=== PATIENT | female | born 1980 | race Caucasian/White ===

== ENCOUNTER → 2018-01-21 | Outpatient (CLI) | payer OTHER | LOC: HPND 09:32 | DX: O09.522 Supervision of elderly multigravida, second trimester (principal) | CPT/HCPCS: 76811 ==

== ENCOUNTER 2018-05-17 17:02 | Inpatient (IN) ==
[~2018-05-17 17:02] MED LIST: Diphtheria/Tetanus/Pertussis Vaccine Inj 0.5 ML Syringe IM ONE; Measles/Mumps/Rubella Vaccine Inj 0.5 ML Vial SQ ONE
--- NOTE | 2018-05-17 17:19 | ED ---
History of Present Illness Primary Care Physician: NOT REQUIRED History of Present Illness: cc: contractions 38-year-old , IUP at 37.5 care complicated by A1 diabetes diagnosed 2 weeks ago, opioid abuse The patient was previously seen today with symptoms of a UTI and possible leaking of fluid. She was also evaluated for labor and was noted not to be found in active labor. She presents complaining of the onset of contractions that were significantly more intense about 1-1/2 hours before presenting. She reports that these contractions have continued to increase in intensity and frequency. She denies any alleviating factors are attempted treatments. She denies any leaking of fluid or vaginal bleeding. She reports good movement. She reports that her sugars have been somewhat all over the place. She reports that today after lunch it was 170 however she has other days where they are well controlled. She has been referred to [facility] but has not yet seen them, she reports she has an appointment with them on Friday. 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 This includes certification that hospital inpatient services are reasonable and necessary and in the case of services not specified as inpatient-only under 42 CFR 419.22(n), that they are appropriately provided as inpatient services in accordance to with the 2-midnight benchmark under 43 CFR 412.3(e) Review of Systems All other systems reviewed negative except as stated in HPI PMFSH - History History Provided By: Patient (Patient was drug free for years and then just recently started using oral opioid meds oxycodone and similar) - Tobacco History Second Hand Smoke Exposure: No Smoking Status: Never smoker - Alcohol History How Often Do You Have a Drink Containing Alcohol: Never - Substance Use History Substance History: Active Abuse (denies today), Past History - Travel History History of Recent Travel: No Medications and Allergies Allergies Allergy/AdvReac Type Severity Reaction Status Date / Time No Known Allergies Allergy Verified 04/30/18 07:42 Exam Narrative: GENERAL: Well-nourished, well-developed patient. SKIN: Warm and dry. HEAD: Normocephalic and atraumatic. EYES: No scleral icterus. No injection or drainage. ENT: No nasal drainage noted. Mucous membranes pink. Airway patent. NECK: Supple, trachea midline. No JVD. CARDIOVASCULAR: Regular rate and rhythm without murmurs, gallops, or rubs. RESPIRATORY: Breath sounds equal bilaterally. No accessory muscle use. BREASTS: Deferred ABDOMEN/GI: Abdomen soft, non-tender, bowel sounds present, no rebound, no guarding Gravid GENITOURINARY: External Genitalia: intact and normal in appearance. Normal BUS. No cervical or vaginal masses noted. Grossly normal rugate. Physiologic discharge with some bloody show noted. SVE 6/C/-1, cephalic. FHT's: heart tones are in the 140s with moderate long-term variability, good accelerations, no decelerations noted. This a category 1 heart rate tracing and a reactive NST EXTREMITIES: No cyanosis or edema. BACK: Nontender without obvious deformity. No CVA tenderness. NEUROLOGICAL: Awake and alert. Motor and sensory grossly within normal limits. Grossly normal muscle strength in all muscle groups. Normal speech. Psychiatric: Grossly normal memory and affect Results - Labs CBC & Chem 7: 05/17/18 17:25 Assessment and Plan - Plan Assessment/plan: 1. IUP at 37.5 2. Active labor: We will admit for active labor at term. Discussed risks of , risks and indications of delivery 3. A1 diabetes: Patient reports suboptimal control, will check hemoglobin A1c. Discussed risk of shoulder dystocia, and potential complications including but not limited to permanent and irreversible / neurological or brain damage, maternal injury. The patient does not meet criteria to recommend a delivery. 4. well-being: Reassuring testing with reactive NST and category 1 heart rate tracing, continue monitoring 5. History of opioid use: Patient has history of substance abuse in the past, but was clean for years. Patient recently started retaking her 's narcotic pain medication. UDS negative earlier today. 6. GBS negative Discharge Plan - Physicians Team ED Provider: Savita Chan Primary Care Provider: NOT REQUIRED, - Discharge Instructions Print Language: Yoruba
[2018-05-17] MEDS ORDERED: Naloxone Inj 0.4 MG/ML Vial IV.PUSH PRN (17:24)
[2018-05-17] MEDS ORDERED: Sodium Chlor 0.9% Inj 500 ML IV.SIG PRN (17:24)
[2018-05-17] MEDS ORDERED: fentaNYL Citrate Inj 100 MCG/2 ML Ampul IV.PUSH PRN ×2 (17:24)
[2018-05-17] MEDS ORDERED: Oxytocin 30 Units/500ml Premix 30 UNITS/500 ML BAG IV.SIG ONE (17:24)
[2018-05-17] MEDS ORDERED: Sod Chloride 0.9% Inj 1,000 ML IV.CONT PRN (17:24)
[2018-05-17] MEDS ORDERED: Citric Acid/Sodium Citrate Liq 30 ML UDC PO SCH (17:30)
[2018-05-17] MEDS ORDERED: fentaNYL 2MCG-Bupiv 0.125% Epi 150 ML EPIDURAL ONE (17:32)
[2018-05-17 17:57] LABS: Baso % (Auto) 0.1 % (0.0-2.0); Eos % (Auto) 0.1 % (0.0-4.0); Hematocrit 36.1 % (35.0-46.0); Lymph % (Auto) 6.1 % (9.0-44.0); Mean Corpuscular HGB Conc 33.2 % (32.0-36.0); Mean Corpuscular Hemoglobin 29.3 pg (27.0-34.0); Mean Corpuscular Volume 88.3 fL (80.0-100.0); Mean Platelet Volume 8.7 fL (7.0-11.0); Mono # (Auto) 1.8 th/mm3 (0.0-0.9); Mono % (Auto) 10.9 % (0.0-8.0); Neut # (Auto) 13.6 th/mm3 (1.8-7.7); Neut % (Auto) 82.8 % (16.0-70.0); Platelet Count 383 th/mm3 (150-450); Red Blood Count 4.09 mil/mm3 (4.00-5.30); Red Cell Distribution Width 14.1 % (11.6-17.2); White Blood Count 16.4 th/mm3 (4.0-11.0)
[2018-05-17] MEDS ORDERED: Lidocaine 2%/Epinephrine 1:100,000 Inj 20 ML Vial ONE (18:42)
[2018-05-17] MEDS ORDERED: Bupivacaine PF 0.25% Inj 10 ML Vial ONE (18:44)
[2018-05-17] MEDS ORDERED: fentaNYL 2MCG-Bupiv 0.125% Epi 150 ML EPIDURAL PRN (19:33)
[2018-05-17] MEDS ORDERED: fentaNYL Citrate Inj 100 MCG/2 ML Ampul EPIDURAL ONE (19:33)
--- NOTE | 2018-05-17 19:36 | P.HPOB ---
History of Present Illness Primary Care Physician: NOT REQUIRED History of Present Illness: History of Present Illness Primary Care Physician: NOT REQUIRED History of Present Illness: cc: contractions 38-year-old , IUP at 37.5 care complicated by A1 diabetes diagnosed 2 weeks ago, opioid abuse The patient was previously seen today with symptoms of a UTI and possible leaking of fluid. She was also evaluated for labor and was noted not to be found in active labor. She presents complaining of the onset of contractions that were significantly more intense about 1-1/2 hours before presenting. She reports that these contractions have continued to increase in intensity and frequency. She denies any alleviating factors are attempted treatments. She denies any leaking of fluid or vaginal bleeding. She reports good movement. She reports that her sugars have been somewhat all over the place. She reports that today after lunch it was 170 however she has other days where they are well controlled. She has been referred to [facility] but has not yet seen them, she reports she has an appointment with them on Friday. 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 This includes certification that hospital inpatient services are reasonable and necessary and in the case of services not specified as inpatient-only under 42 CFR 419.22(n), that they are appropriately provided as inpatient services in accordance to with the 2-midnight benchmark under 43 CFR 412.3(e) Review of Systems All other systems reviewed negative except as stated in HPI PMFSH - History History Provided By: Patient (Patient was drug free for years and then just recently started using oral opioid meds oxycodone and similar) - Tobacco History Second Hand Smoke Exposure: No Smoking Status: Never smoker - Alcohol History How Often Do You Have a Drink Containing Alcohol: Never - Substance Use History Substance History: Active Abuse (denies today), Past History - Travel History History of Recent Travel: No Medications and Allergies Allergies Allergy/AdvReac Type Severity Reaction Status Date / Time No Known Allergies Allergy Verified 04/30/18 07:42 Exam Narrative: GENERAL: Well-nourished, well-developed patient. SKIN: Warm and dry. HEAD: Normocephalic and atraumatic. EYES: No scleral icterus. No injection or drainage. ENT: No nasal drainage noted. Mucous membranes pink. Airway patent. NECK: Supple, trachea midline. No JVD. CARDIOVASCULAR: Regular rate and rhythm without murmurs, gallops, or rubs. RESPIRATORY: Breath sounds equal bilaterally. No accessory muscle use. BREASTS: Deferred ABDOMEN/GI: Abdomen soft, non-tender, bowel sounds present, no rebound, no guarding Gravid GENITOURINARY: External Genitalia: intact and normal in appearance. Normal BUS. No cervical or vaginal masses noted. Grossly normal rugate. Physiologic discharge with some bloody show noted. SVE 6/C/-1, cephalic. FHT's: heart tones are in the 140s with moderate long-term variability, good accelerations, no decelerations noted. This a category 1 heart rate tracing and a reactive NST EXTREMITIES: No cyanosis or edema. BACK: Nontender without obvious deformity. No CVA tenderness. NEUROLOGICAL: Awake and alert. Motor and sensory grossly within normal limits. Grossly normal muscle strength in all muscle groups. Normal speech. Psychiatric: Grossly normal memory and affect Results - Labs CBC & Chem 7: 05/17/18 17:25 Assessment and Plan - Plan Assessment/plan: 1. IUP at 37.5 2. Active labor: We will admit for active labor at term. Discussed risks of , risks and indications of delivery 3. A1 diabetes: Patient reports suboptimal control, will check hemoglobin A1c. Discussed risk of shoulder dystocia, and potential complications including but not limited to permanent and irreversible / neurological or brain damage, maternal injury. The patient does not meet criteria to recommend a delivery. 4. well-being: Reassuring testing with reactive NST and category 1 heart rate tracing, continue monitoring 5. History of opioid use: Patient has history of substance abuse in the past, but was clean for years. Patient recently started retaking her 's narcotic pain medication. Patient was seen by previous physician and UDS reportedly ordered; the RN reported to me that the UDS from earlier today was negative, so patient was admitted without UDS. However, review of the records indicates a UDS from 7/26/18 that was positive for opioids but there is no drug screen noted from earlier today. Patient has received fentanyl IV and in her epidural but not received any opioids. Will check UDS. 6. GBS negative Discharge Plan - Physicians Team ED Provider: Savita Chan Primary Care Provider: NOT REQUIRED, - Discharge Instructions Print Language: Slovenian - Inpatient Certification I certify that the inpatient services were ordered in accordance with Medicare regulations governing the order. This includes certification that hospital inpatient services are reasonable and necessary and in the case of services not specified as inpatient-only under 42 CFR 419.22(n), that they are appropriately provided as inpatient services in accordance to with the 2-midnight benchmark under 43 CFR 412.3(e) Estimated Total Length of Stay (Days): 3 Plans for Post Hospital Care: Home [facility] - History History Provided By: Patient (Patient was drug free for years and then just recently started using oral opioid meds oxycodone and similar) - Tobacco History Second Hand Smoke Exposure: No Smoking Status: Never smoker - Alcohol History How Often Do You Have a Drink Containing Alcohol: Never - Substance Use History Substance History: Active Abuse (denies today), Past History - Travel History History of Recent Travel: No Medications and Allergies Active Medications: Active Medications Citric Acid/Sodium Citrate (Sodium Citrate/Citric Acid Liq) 30 ml PO [employer]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 [facility] Stop: 05/21/18 17:29 Fentanyl Citrate (Fentanyl Inj) 50 mcg IV.PUSH Q1H PRN PRN Reason: Pain Scale 3 - 5 Fentanyl Citrate (Fentanyl Inj) 100 mcg IV.PUSH Q1H PRN PRN Reason: PAIN SCALE 6 TO 10 Last Admin: 05/17/18 18:51 Dose: 100 mcg Lactated Ringer's (Lr 1000 Ml Inj) 1,000 mls @ 125 mls/hr IV.CONT .Q8H [facility] Last Admin: 05/17/18 18:01 Dose: 125 mls/hr Sodium Chloride (Ns Inj) 500 mls @ 1,000 mls/hr IV.SIG UNSCH PRN PRN Reason: SEE LABEL COMMENTS Lactated Ringer's (Lr 1000 Ml Inj) 1,000 mls @ 3,000 mls/hr IV.SIG UNSCH PRN PRN Reason: compromise or epidural Last Infusion: 05/17/18 19:30 Dose: Infused Sodium Chloride (Ns Inj) 1,000 mls @ 100 mls/hr IV.CONT .Q10H PRN PRN Reason: SEE LABEL COMMENTS Lidocaine HCl (Xylocaine 1% Inj) 0.1 ml I-DERMAL PRN PRN PRN Reason: For IV start Stop: 05/20/18 17:23 Lidocaine HCl (Xylocaine 1% Inj) 10 ml INFILTRATN PRN PRN PRN Reason: For episiotomy repair Stop: 05/19/18 17:23 Metoclopramide HCl (Reglan Inj) 10 mg IV.PUSH ONCE PRN; Protocol PRN Reason: NAUSEA OR VOMITING Mineral Oil (Muri-Lube Oil) 10 ml TOPICAL PRN PRN PRN Reason: PRN perineal massage Naloxone HCl (Narcan Inj) 0.1 mg IV.PUSH Q2M PRN PRN Reason: for opiate reversal Ondansetron HCl (Zofran Inj) 4 mg IV.PUSH Q6H PRN PRN Reason: NAUSEA OR VOMITING Allergies Allergy/AdvReac Type Severity Reaction Status Date / Time No Known Allergies Allergy Verified 04/30/18 07:42 Home Medications Medication Instructions Recorded Confirmed Type acetaminophen [Tylenol] 650 mg PO Q4H PRN 05/17/18 05/17/18 History famotidine [Pepcid AC] 20 mg PO DAILY 05/17/18 05/17/18 History vit-iron fum-folic ac 1 tab PO DAILY 05/17/18 05/17/18 History [ Vitamin] Exam Vital signs: Vital Signs 05/17/18 17:28 05/17/18 17:30 05/17/18 18:25 Temperature 98.8 F Pulse Rate 138 H 103 H Respiratory Rate 20 Blood Pressure 125/96 H 05/17/18 18:35 05/17/18 18:40 05/17/18 18:55 Temperature Pulse Rate 110 H 109 H 107 H Respiratory Rate Blood Pressure 123/76 113/71 108/76 05/17/18 19:05 05/17/18 19:10 05/17/18 19:14 Temperature 99.6 F Pulse Rate 105 H 129 H Respiratory Rate 20 Blood Pressure 134/98 H 117/73 05/17/18 19:15 05/17/18 19:25 05/17/18 19:30 Temperature Pulse Rate 112 H 107 H 102 H Respiratory Rate Blood Pressure 122/72 113/74 Intake & Output 05/17/1818 18 06:59 18:59 06:59 Intake Total 1000 / 1000 Balance 1000 / 1000 Weight 63.503 kg Intake: IV 1000 / 1000 LR 1000 mL Inj 1,000 ML @ 3000 1000 / 1000 mls/hr IV.SIG UNSCH PRN Rx#: [id number] Results - Labs CBC & Chem 7: 05/17/18 17:25 Labs: Laboratory Results - last 24 hr 05/17/18 05/17/18 17:25 17:25 WBC 16.4 H RBC 4.09 Hgb 12.0 Hct 36.1 MCV 88.3 MCH 29.3 MCHC 33.2 RDW 14.1 Plt Count 383 D MPV 8.7 Neut % (Auto) 82.8 H Lymph % (Auto) 6.1 L Sebastian % (Auto) 10.9 H Eos % (Auto) 0.1 Baso % (Auto) 0.1 Neut # (Auto) 13.6 H Lymph # (Auto) 1.0 Sebastian # (Auto) 1.8 H Eos # (Auto) 0.0 Baso # (Auto) 0.0 WBC Differential . Differential Comment Auto diff final Blood Type O Positive Blood Type Recheck Required Caprini VTE Risk Assessment Caprini VTE Risk Assessment: No/Low Risk (score <= 1) Caprini Risk Assessment Model: Point Value = 1 Point Value = 2 Point Value = 3 Point Value = 5 Age 41-60 Minor surgery BMI > 25 kg/m2 Swollen legs Varicose veins or History of unexplained or recurrent spontaneous Oral contraceptives or hormone replacement Sepsis (< 1 month) Serious lung disease, including pneumonia (< 1 month) Abnormal pulmonary function Acute myocardial infarction Congestive heart failure (< 1 month) History of inflammatory bowel disease Medical patient at bed rest Age 61-74 Arthroscopic surgery Major open surgery (> 45 min) Laparoscopic surgery (> 45 min) Malignancy Confined to bed (> 72 hours) Immobilizing plaster cast Central venous access Age >= 75 History of VTE Family history of VTE Factor V Leiden Prothrombin [id number] Lupus anticoagulant Anticardiolipin antibodies Elevated serum homocysteine Heparin-induced thrombocytopenia Other congenital or acquired thrombophilia Stroke (< 1 month) Elective arthroplasty Hip, pelvis, or leg fracture Acute spinal cord injury (< 1 month) Prophylaxis Regimen: Total Risk Factor Score Risk Level Prophylaxis Regimen 0-1 Low Early ambulation 2 Moderate Order ONE of the following: *Sequential Compression Device (SCD) *Heparin 5000 units SQ BID 3-4 Higher Order ONE of the following medications: *Heparin 5000 units SQ TID *Enoxaparin/Lovenox 40 mg SQ daily (WT < 150 kg, CrCl > 30 mL/min) *Enoxaparin/Lovenox 30 mg SQ daily (WT < 150 kg, CrCl > 10-29 mL/min) *Enoxaparin/Lovenox 30 mg SQ BID (WT < 150 kg, CrCl > 30 mL/min) AND/OR *Sequential Compression Device (SCD) 5 or more Highest Order ONE of the following medications: *Heparin 5000 units SQ TID (Preferred with Epidurals) *Enoxaparin/Lovenox 40 mg SQ daily (WT < 150 kg, CrCl > 30 mL/min) *Enoxaparin/Lovenox 30 mg SQ daily (WT < 150 kg, CrCl > 10-29 mL/min) *Enoxaparin/Lovenox 30 mg SQ BID (WT < 150 kg, CrCl > 30 mL/min) AND *Sequential Compression Device (SCD) Assessment and Plan - Plan Assessment/plan: 1. IUP at 37.5 2. Active labor: We will admit for active labor at term. Discussed risks of , risks and indications of delivery 3. A1 diabetes: Patient reports suboptimal control, will check hemoglobin A1c. Discussed risk of shoulder dystocia, and potential complications including but not limited to permanent and irreversible / neurological or brain damage, maternal injury. The patient does not meet criteria to recommend a delivery. 4. well-being: Reassuring testing with reactive NST and category 1 heart rate tracing, continue monitoring 5. History of opioid use: Patient has history of substance abuse in the past, but was clean for years. Patient recently started retaking her 's narcotic pain medication. UDS negative earlier today. 6. GBS negative
--- NOTE | 2018-05-17 21:05 | P.PN ---
Subjective Interval history: Patient progressed to C/C/0 and commenced spontaneous maternal expulsive efforts with reassuring heart tones throughout. The head delivered spontaneously and atraumatically in the OP presentation and the anterior shoulder delivered spontaneously and atraumatically after restitution with spontaneous and atraumatic delivery of the remainder of the . was not stimulated to allow for pedi team to clear meconium. The was crying and moving vigorously by 45 seconds of life and was noted to have good overall tone and moving all extremities vigorously before 1 minute of life on the delivery field. Cord blood was obtained for the nursery and the placenta delivered spontaneously. EBL 150cc. Apgars were assigned 7/9 although vigorous movement and tone were noted by MD on the delivery field and warmer. Superficial bilateral labial lacerations were repaired for cosmesis. Mother and are both doing well. Physical Exam Vital signs: Vital Signs 05/17/18 17:28 05/17/18 17:30 05/17/18 18:25 Temperature 98.8 F Pulse Rate 138 H 103 H Respiratory Rate 20 Blood Pressure 125/96 H 05/17/18 18:35 05/17/18 18:40 05/17/18 18:55 Temperature Pulse Rate 110 H 109 H 107 H Respiratory Rate Blood Pressure 123/76 113/71 108/76 05/17/18 19:05 05/17/18 19:10 05/17/18 19:14 Temperature 99.6 F Pulse Rate 105 H 129 H Respiratory Rate 20 Blood Pressure 134/98 H 117/73 05/17/18 19:15 05/17/18 19:25 05/17/18 19:30 Temperature Pulse Rate 112 H 107 H 102 H Respiratory Rate Blood Pressure 122/72 113/74 05/17/18 19:40 05/17/18 19:48 05/17/18 19:50 Temperature Pulse Rate 120 H 100 H 104 H Respiratory Rate Blood Pressure 84/65 L 121/78 05/17/18 19:55 05/17/18 20:00 05/17/18 20:05 Temperature Pulse Rate 129 H 112 H 121 H Respiratory Rate Blood Pressure 137/65 05/17/18 20:10 05/17/18 20:20 05/17/18 20:30 Temperature Pulse Rate 109 H 105 H 111 H Respiratory Rate Blood Pressure 119/84 121/73 05/17/18 20:41 05/17/18 20:45 Temperature 97.8 F Pulse Rate 96 H Respiratory Rate 18 Blood Pressure 112/68 Intake & Output 05/17/18 05/17/18 05/18/18 06:59 18:59 06:59 Intake Total 1000 / 1000 Balance 1000 / 1000 Weight 63.503 kg Intake: IV 1000 / 1000 LR 1000 mL Inj 1,000 ML @ 3000 1000 / 1000 mls/hr IV.SIG UNSCH PRN Rx#: [id number] Results - Labs CBC & Chem 7: 05/17/18 17:25 Laboratory Results - last 24 hr 05/17/18 05/17/18 17:25 17:25 WBC 16.4 H RBC 4.09 Hgb 12.0 Hct 36.1 MCV 88.3 MCH 29.3 MCHC 33.2 RDW 14.1 Plt Count 383 D MPV 8.7 Neut % (Auto) 82.8 H Lymph % (Auto) 6.1 L Perkins % (Auto) 10.9 H Eos % (Auto) 0.1 Baso % (Auto) 0.1 Neut # (Auto) 13.6 H Lymph # (Auto) 1.0 Perkins # (Auto) 1.8 H Eos # (Auto) 0.0 Baso # (Auto) 0.0 WBC Differential . Differential Comment Auto diff final Blood Type O Positive Blood Type Recheck Required
--- NOTE | 2018-05-17 21:07 | P.OBDELI ---
Weeks Gestation: 37 Anesthesia: Epidural Episiotomy: none Vaginal Delivery: Normal Presentation: Occiput posterior Nuchal Cord: None Delayed Cord Clamping (45 sec): No (Thick meconium) Placenta: Spontaneous delivery Laceration: Vaginal (superficial bilateral labial abrasions, reapproximated with 4-0 vicryl for cosmesis) Repair: Vicryl interrupted Estimated blood loss (mL): 150 : Male
[2018-05-17] MEDS ORDERED: Benzocaine 20% Top Spray 60 ML Can TOPICAL PRN (21:08)
[2018-05-17] MEDS ORDERED: Witch Hazel 50%/Glyderin 12.5% 40 Pad Jar RECTAL PRN (21:08)
[2018-05-17] MEDS ORDERED: Zolpidem Tartrate 5 MG Tablet PO PRN (21:08)
[2018-05-17] MEDS ORDERED: Bisacodyl 10 MG Supp RECTAL PRN (21:08)
[2018-05-17] MEDS ORDERED: Oxytocin 30 Units/500ml Premix 30 UNITS/500 ML BAG IV.CONT SCH (21:15)
[2018-05-17 21:37] LABS: Bilirubin,Urine Negative (Negative); Clarity,Urine Clear (Clear); Color,Urine Yellow (Yellw/Straw); Glucose,Urine (UA) Negative (Negative); Leukocyte Esterase,Urine Negative (Negative); Nitrite,Urine Negative (Negative); Specific Gravity,Urine 1.008 (1.002-1.035); Squamous Epithelial Cell,Urine 1 /hpf (0-5)
[2018-05-17 21:41] LABS: Amphetamine Urine With Conf Neg (Neg); Benzodiazepine Urine With Conf Neg (Neg)
[2018-05-18] MEDS: Ibuprofen 400 MG Tablet PO PRN ×3 (02:46→21:34)
[2018-05-18] MEDS: Acetaminophen 325 MG Tablet PO PRN ×3 (02:47→21:14)
[2018-05-18] MEDS: Senna/Docusate Sodium 8.6/50 MG Tablet PO SCH ×2 (10:48→21:14)
--- NOTE | 2018-05-18 10:59 | P.PNOB ---
Subjective Interval history: day # 1 AFVSS overnight. Decreased lochia. Denies dysuria. No breast tenderness. Appetite good. No nausea or vomiting. Positive flatus/bowel movement. Ambulating well. Denies calf pain or shortness of breath. Otherwise, she is doing well this morning and has no other complaints. Objective Vital Signs/I&O: Vital Signs 05/17/18 17:28 05/17/18 17:30 05/17/18 18:25 Temperature 98.8 F Pulse Rate 138 H 103 H Respiratory Rate 20 Blood Pressure 125/96 H 05/17/18 18:35 05/17/18 18:40 05/17/18 18:55 Temperature Pulse Rate 110 H 109 H 107 H Respiratory Rate Blood Pressure 123/76 113/71 108/76 05/17/18 19:05 05/17/18 19:10 05/17/18 19:14 Temperature 99.6 F Pulse Rate 105 H 129 H Respiratory Rate 20 Blood Pressure 134/98 H 117/73 05/17/18 19:15 05/17/18 19:25 05/17/18 19:30 Temperature Pulse Rate 112 H 107 H 102 H Respiratory Rate Blood Pressure 122/72 113/74 05/17/18 19:40 05/17/18 19:48 05/17/18 19:50 Temperature Pulse Rate 120 H 100 H 104 H Respiratory Rate Blood Pressure 84/65 L 121/78 05/17/18 19:55 05/17/18 20:00 05/17/18 20:05 Temperature Pulse Rate 129 H 112 H 121 H Respiratory Rate Blood Pressure 137/65 05/17/18 20:10 05/17/18 20:20 05/17/18 20:30 Temperature Pulse Rate 109 H 105 H 111 H Respiratory Rate Blood Pressure 119/84 121/73 05/17/18 20:41 05/17/18 20:45 05/17/18 21:00 Temperature 97.8 F Pulse Rate 96 H 98 H Respiratory Rate 18 Blood Pressure 112/68 128/76 05/17/18 21:15 05/17/18 21:18 05/17/18 21:30 Temperature Pulse Rate 100 H 113 H Respiratory Rate 18 Blood Pressure 123/76 117/80 05/17/18 21:54 05/18/18 00:00 05/18/18 08:00 Temperature 98.0 F 97.8 F Pulse Rate 95 H 76 Respiratory Rate 18 20 16 Blood Pressure 108/71 88/57 L Intake & Output 05/17/18 05/18/18 05/18/18 18:59 06:59 18:59 Intake Total 1000 / 1000 Balance 1000 / 1000 Weight 63.503 kg Intake: IV 1000 / 1000 LR 1000 mL Inj 1,000 ML @ 3000 1000 / 1000 mls/hr IV.SIG UNSCH PRN Rx#: [id number] Result Diagrams: 05/17/18 17:25 Objective Remarks: GENERAL: Well-nourished, well-developed patient. CARDIOVASCULAR: Regular rate and rhythm without murmurs, gallops, or rubs. RESPIRATORY: Breath sounds equal bilaterally. No accessory muscle use. ABDOMEN/GI: Abdomen soft, non-tender. Fundus: Firm, non-tender at umbilicus. GENITOURINARY: Light to moderate bleeding. EXTREMITIES: No cyanosis or edema, non-tender, without signs of DVT. Medications and IVs: Active Medications Acetaminophen (Tylenol) 650 mg PO Q4H PRN PRN Reason: PAIN SCALE 1 TO 2 Last Admin: 05/18/18 07:20 Dose: 650 mg Al Hydroxide/Mg Hydroxide (Milk Of Magnesia Liq) 30 ml PO Q12H PRN PRN Reason: Mild Constipation Benzocaine (Americaine 20% [place]) 1 spray TOPICAL Q4H PRN PRN Reason: For Perineum Discomfort Bisacodyl (Dulcolax Supp) 10 mg RECTAL DAILY PRN PRN Reason: SEVERE CONSITIPATION Citric Acid/Sodium Citrate (Sodium Citrate/Citric Acid Liq) 30 ml PO LEAD NURSE [facility] Stop: 05/21/18 17:29 Ephedrine Sulfate (Ephedrine/Ns Syringe) 10 mg IV.PUSH UNSCH PRN PRN Reason: SEE LABEL COMMENTS Stop: 05/18/18 19:33 Last Admin: 05/17/18 19:48 Dose: 5 mg Fentanyl Citrate (Fentanyl Inj) 50 mcg IV.PUSH Q1H PRN PRN Reason: Pain Scale 3 - 5 Fentanyl Citrate (Fentanyl Inj) 100 mcg IV.PUSH Q1H PRN PRN Reason: PAIN SCALE 6 TO 10 Last Admin: 05/17/18 18:51 Dose: 100 mcg Lactated Ringer's (Lr 1000 Ml Inj) 1,000 mls @ 125 mls/hr IV.CONT .Q8H JUL[facility] Last Admin: 05/18/18 10:45 Dose: Not Given Sodium Chloride (Ns Inj) 500 mls @ 1,000 mls/hr IV.SIG UNSCH PRN PRN Reason: SEE LABEL COMMENTS Lactated Ringer's (Lr 1000 Ml Inj) 1,000 mls @ 3,000 mls/hr IV.SIG UNSCH PRN PRN Reason: compromise or epidural Last Infusion: 05/17/18 19:30 Dose: Infused Sodium Chloride (Ns Inj) 1,000 mls @ 100 mls/hr IV.CONT .Q10H PRN PRN Reason: SEE LABEL COMMENTS Fentanyl/Bupivacaine/Sodium Chlor (Fentanyl 2 Mcg-Bupiv 0.125% Epi) 150 mls @ 12 mls/hr EPIDURAL PRN PRN PRN Reason: for Labor Pain Last Admin: 05/17/18 19:00 Dose: 12 mls/hr Ibuprofen (Motrin) 800 mg PO Q8H PRN PRN Reason: For cramping Last Admin: 05/18/18 02:46 Dose: 800 mg Lactulose (Lactulose Liq) 30 ml PO DAILY PRN PRN Reason: SEVERE CONSITIPATION Lidocaine HCl (Xylocaine 1% Inj) 0.1 ml I-DERMAL PRN PRN PRN Reason: For IV start Stop: 05/20/18 17:23 Lidocaine HCl (Xylocaine 1% Inj) 10 ml INFILTRATN PRN PRN PRN Reason: For episiotomy repair Stop: 05/19/18 17:23 Metoclopramide HCl (Reglan Inj) 10 mg IV.PUSH ONCE PRN; Protocol PRN Reason: NAUSEA OR VOMITING Mineral Oil (Muri-Lube Oil) 10 ml TOPICAL PRN PRN PRN Reason: PRN perineal massage Miscellaneous Information (Misc Information) 1 each OTHER UNSCH PRN PRN Reason: SEE LABEL COMMENTS Stop: 05/18/18 19:33 Miscellaneous Information (Misc Information) 1 each OTHER UNSCH PRN PRN Reason: SEE LABEL COMMENTS Stop: 05/18/18 19:33 Naloxone HCl (Narcan Inj) 0.1 mg IV.PUSH Q2M PRN PRN Reason: for opiate reversal Ondansetron HCl (Zofran Inj) 4 mg IV.PUSH Q6H PRN PRN Reason: NAUSEA OR VOMITING Oxycodone/Acetaminophen (Percocet 5/325 Mg) 1 tab PO Q4H PRN PRN Reason: PAIN SCALE 3 TO 5 Oxycodone/Acetaminophen (Percocet 5/325 Mg) 2 tab PO Q4H PRN PRN Reason: PAIN SCALE 6 TO 10 Senna/Docusate Sodium (Whitney-Colace) 1 tab PO BID [facility] Last Admin: 05/18/18 10:48 Dose: Not Given Sennosides (Senokot) 17.2 mg PO Q12H PRN PRN Reason: Moderate Constipation Sodium Chloride (Ns Flush) 2 ml IV.FLUSH BID [facility] Last Admin: 05/18/18 10:48 Dose: Not Given Sodium Chloride (Ns Flush) 2 ml IV.FLUSH PRN PRN PRN Reason: FLUSH AFTER USING IV ACCESS Witch Brandee/Glycerin (Tucks Pads) 1 applicatio RECTAL QID PRN PRN Reason: HEMORRHOIDS Zolpidem Tartrate (Ambien) 5 mg PO HS PRN PRN Reason: SLEEP Assessment and Plan - Plan 38 y/o female who is PPD# 1 s/p . -Continue routine care. -Motrin PRN pain. -Encouraged OOB. Advised pelvic rest for 6 wks. -Re: ctrl, she would like to discuss tomorrow. -D/c in 1-[address] Chan - Attending Attestation The patient was seen and examined by me and I participated in all aguirre decision making. Continue routine care. [facility]
[2018-05-18 16:15] LABS: Hemoglobin A1c 5.6 % (4.3-6.0)
[2018-05-19] MEDS: Acetaminophen 325 MG Tablet PO PRN ×4 (02:13→17:28)
[2018-05-19] MEDS: Ibuprofen 400 MG Tablet PO PRN (05:57)
--- NOTE | 2018-05-19 09:19 | P.PNOB ---
Subjective Interval history: day # 2 AFVSS overnight. Decreased lochia. Denies dysuria. No breast tenderness. Appetite good. No nausea or vomiting. Positive flatus/bowel movement. Ambulating well. Denies calf pain or shortness of breath. Otherwise, she is doing well this morning and has no other complaints. Objective Vital Signs/I&O: Vital Signs 05/18/18 19:35 05/18/18 22:00 05/19/18 03:00 Temperature 99.1 F 99.8 F H 97.5 F L Pulse Rate 61 Respiratory Rate 18 Blood Pressure 114/65 05/19/18 05:57 Temperature 97.5 F L Pulse Rate Respiratory Rate Blood Pressure Result Diagrams: 05/17/18 17:25 Objective Remarks: GENERAL: Well-nourished, well-developed patient. CARDIOVASCULAR: Regular rate and rhythm without murmurs, gallops, or rubs. RESPIRATORY: Breath sounds equal bilaterally. No accessory muscle use. ABDOMEN/GI: Abdomen soft, non-tender. Fundus: Firm, non-tender at umbilicus. GENITOURINARY: Light to moderate bleeding. EXTREMITIES: No cyanosis or edema, non-tender, without signs of DVT. Medications and IVs: Active Medications Acetaminophen (Tylenol) 650 mg PO Q4H PRN PRN Reason: PAIN SCALE 1 TO 2 Last Admin: 05/19/18 05:57 Dose: 650 mg Al Hydroxide/Mg Hydroxide (Milk Of Magnesia Liq) 30 ml PO Q12H PRN PRN Reason: Mild Constipation Benzocaine (Americaine 20% Top [place]) 1 spray TOPICAL Q4H PRN PRN Reason: For Perineum Discomfort Bisacodyl (Dulcolax Supp) 10 mg RECTAL DAILY PRN PRN Reason: SEVERE CONSITIPATION Citric Acid/Sodium Citrate (Sodium Citrate/Citric Acid Liq) 30 ml PO MONOGRAM AND LETTER PASTER [facility] Stop: 05/21/18 17:29 Fentanyl Citrate (Fentanyl Inj) 50 mcg IV.PUSH Q1H PRN PRN Reason: Pain Scale 3 - 5 Fentanyl Citrate (Fentanyl Inj) 100 mcg IV.PUSH Q1H PRN PRN Reason: PAIN SCALE 6 TO 10 Last Admin: 05/17/18 18:51 Dose: 100 mcg Lactated Ringer's (Lr 1000 Ml Inj) 1,000 mls @ 125 mls/hr IV.CONT .Q8H [facility] Last Admin: 05/19/18 08:17 Dose: Not Given Sodium Chloride (Ns Inj) 500 mls @ 1,000 mls/hr IV.SIG UNSCH PRN PRN Reason: SEE LABEL COMMENTS Lactated Ringer's (Lr 1000 Ml Inj) 1,000 mls @ 3,000 mls/hr IV.SIG UNSCH PRN PRN Reason: compromise or epidural Last Infusion: 05/17/18 19:30 Dose: Infused Sodium Chloride (Ns Inj) 1,000 mls @ 100 mls/hr IV.CONT .Q10H PRN PRN Reason: SEE LABEL COMMENTS Fentanyl/Bupivacaine/Sodium Chlor (Fentanyl 2 Mcg-Bupiv 0.125% Epi) 150 mls @ 12 mls/hr EPIDURAL PRN PRN PRN Reason: for Labor Pain Last Admin: 05/17/18 19:00 Dose: 12 mls/hr Ibuprofen (Motrin) 800 mg PO Q8H PRN PRN Reason: For cramping Last Admin: 05/19/18 05:57 Dose: 800 mg Lactulose (Lactulose Liq) 30 ml PO DAILY PRN PRN Reason: SEVERE CONSITIPATION Lidocaine HCl (Xylocaine 1% Inj) 0.1 ml I-DERMAL PRN PRN PRN Reason: For IV start Stop: 05/20/18 17:23 Lidocaine HCl (Xylocaine 1% Inj) 10 ml INFILTRATN PRN PRN PRN Reason: For episiotomy repair Stop: 05/19/18 17:23 Metoclopramide HCl (Reglan Inj) 10 mg IV.PUSH ONCE PRN; Protocol PRN Reason: NAUSEA OR VOMITING Mineral Oil (Muri-Lube Oil) 10 ml TOPICAL PRN PRN PRN Reason: PRN perineal massage Naloxone HCl (Narcan Inj) 0.1 mg IV.PUSH Q2M PRN PRN Reason: for opiate reversal Ondansetron HCl (Zofran Inj) 4 mg IV.PUSH Q6H PRN PRN Reason: NAUSEA OR VOMITING Oxycodone/Acetaminophen (Percocet 5/325 Mg) 1 tab PO Q4H PRN PRN Reason: PAIN SCALE 3 TO 5 Last Admin: 05/18/18 17:02 Dose: 1 tab Oxycodone/Acetaminophen (Percocet 5/325 Mg) 2 tab PO Q4H PRN PRN Reason: PAIN SCALE 6 TO 10 Last Admin: 05/18/18 11:21 Dose: 2 tab Senna/Docusate Sodium (Whitney-Colace) 1 tab PO BID [facility] Last Admin: 05/18/18 21:14 Dose: 1 tab Sennosides (Senokot) 17.2 mg PO Q12H PRN PRN Reason: Moderate Constipation Sodium Chloride (Ns Flush) 2 ml IV.FLUSH BID [facility] Last Admin: 05/19/18 02:14 Dose: Not Given Sodium Chloride (Ns Flush) 2 ml IV.FLUSH PRN PRN PRN Reason: FLUSH AFTER USING IV ACCESS Witch Brandee/Glycerin (Tucks Pads) 1 applicatio RECTAL QID PRN PRN Reason: HEMORRHOIDS Zolpidem Tartrate (Ambien) 5 mg PO HS PRN PRN Reason: SLEEP Assessment and Plan - Plan 38 y/o female who is PPD# 2 s/p . -Continue routine care. -Motrin PRN pain. -Encouraged OOB. Advised pelvic rest for 6 wks. -D/c likely today. jarethw Dr. Arias
[2018-05-19 13:25] VITALS: BP 111/72
[2018-05-19 16:39] VITALS: PULSE 130; RESP 32; TEMP 97.9
== END 2018-05-19 17:35 | disposition home or self-care (01) ==
LOC: HOBED 17:02 → H2E 17:13 → H1EA 23:32
PROVIDERS: ADMIT Obstetrics & Gynecology; ATTEND Obstetrics & Gynecology